=== PATIENT | female | born 1965 | race Caucasian/White ===

== ENCOUNTER 2017-06-19 16:46 | Emergency (ER) | payer BC ==
[~2017-06-19 16:46] MED LIST: ALBUTEROL0.63 MG/3 IH; ALBUTEROL17 GM INH; BACTRIM 400-801 TA1 PO; IRON325 ( 651 PO; KEFLEX500 MG PO; LOTRIMIN30 GM TOP; PHENERGAN25 M1 PO; PREDNISONE PO; PROAIR HFA8.5 GM IH; QVAR7.3 G1 INH; SYMBICORT INH; SYNTHROID PO; SYNTHROID125 PO; VOLTAREN75 MG PO; ZITHROMAX1 G/PKT PO
[2017-06-19 17:47] LABS: URINE SOURCE CLEAN CATCH
[2017-06-19 18:11] LABS: URINE APPEARANCE CLEAR; URINE BILIRUBIN NEG (NEG); URINE BLOOD 1+ (NEG); URINE COLOR YELLOW; URINE GLUCOSE NEG (NORM); URINE KETONE NEG (NEG); URINE LEUKOCYTE ESTERASE 1+ (NEG); URINE NITRATE NEG (NEG); URINE PH 5.5 (5-8); URINE PROTEIN 1+ (NEG); URINE SPECIFIC GRAVITY >=1.030 (1.003-1.035); URINE UROBILINOGEN 0.2 MG/DL (NORM)
[2017-06-19 18:16] LABS: MICRO INDICATED? YES
[2017-06-19 18:20] LABS: URINE BACTERIA 1+ (NEG)
[2017-06-19 18:21] LABS: URINE SQUAMOUS EPITHELIAL CELL FEW /[HPF]
== END 2017-06-19 18:34 | disposition home or self-care (01) ==
LOC: SED 16:46
PROVIDERS: Physician Assistant
DX: N39.0 Urinary tract infection, site not specified (principal); J45.909 Unspecified asthma, uncomplicated; F17.200 Nicotine dependence, unspecified, uncomplicated; Z98.51 Tubal ligation status; Z79.899 Other long term (current) drug therapy
CPT/HCPCS: 81003; 99283